=== PATIENT | male | born 1950 | race Caucasian/White ===

== ENCOUNTER 2024-04-09 13:33 | Emergency (ER) | payer MEDICARE, SELFPAY ==
--- NOTE | ~2024-04-09 | CT_ITS ---
CLINICAL HISTORY: LLQ Pain CT abdomen and pelvis with contrast Comparison: None Findings: No consolidation at the lung bases. Unremarkable gallbladder and bladder. No hydronephrosis or nephrolithiasis. The kidneys enhance normally. The other solid organs are unremarkable. Small hiatal hernia. No bowel dilation. There are few loops of small bowel which are prominent however measure within normal limits, measuring up to 2.2 cm. The appendix is not visualized. No secondary signs of acute appendicitis. Colonic diverticulosis. No inflamed diverticula or pericolonic stranding to indicate diverticulitis. No definitive bowel wall thickening; there is underdistention of portions of the small bowel and of the distal colon. No aneurysm. Mild to moderate calcified atherosclerotic disease. No lymphadenopathy. No ascites. Tiny fat containing umbilical hernia. Tiny right and small left fat containing inguinal hernias. No acute osseous abnormality. Impression: No acute findings. This document has been electronically signed by: Tiffany Zamudio MD on 04/09/2024 18:07:11
[2024-04-09 14:06] VITALS: BP 156/87; PULSE 83; RESP 16; TEMP 36.5; O2SAT 97; BMI 21.5
--- NOTE | 2024-04-09 14:07 | ED.ABDPAIN ---
HPI - Abdominal Pain General Chief Complaint: Abdominal Pain Stated Complaint: Lower L quadrant pain Time Seen by Provider: 04/09/24 14:38 Source: patient Mode of arrival: ambulatory Limitations: no limitations History of Present Illness ED Provider: Rob Fisher PA-C HPI narrative: 73 yo male with history of chronic constipation, chronic back pain on PRN [place] who presents to the ER c/o acute onset of LLQ pain that started this morning as he was walking through [employer]. Pain started gradually and got worse as he walked and moved around. He states the pain improves when he stays still and gets >10 with movement. He tried to have a BM today and also had increased pain in the LLQ. He report some nausea but no vomiting. Last BM yesterday and was normal for him. He takes miralax every day but forgot to yesterday. He reports inability to urinate since the pain developed. No testicular pain or penile pain. He denies a palpable mass in the area. MD elicited complaint: abdominal pain Pertinent past history: constipation Onset (ago): hour(s) Pain Consistency: constant Location: LLQ and suprapubic Severity: severe Quality: stabbing and sharp Radiation: none Migration to: no migration Exacerbating factors: movement Relieving factors: rest Associated symptoms: nausea, constipation and other (unable to urinate) Related Data Allergies Allergy/AdvReac Type Severity Reaction Status Date / Time Penicillins Allergy Hives Verified 04/09/24 14:10 Review of Systems Review of Systems Yes all other systems are reviewed and are negative [facility] Social History Social History Alcohol intake: current Alcohol intake frequency: 0-2 drinks per day Alcohol type: beer Smoked in Last 30 Days: No Use of substances other than those prescribed or required for medical reasons: No Advance Directives: No Advance Directives Information Provided: Yes Physical Exam ED Vital Signs: Vital Signs - 24 hr 04/09/24 14:06 04/09/24 15:16 04/09/24 16:16 Temperature 97.7 F Pulse Rate 83 88 Respiratory Rate 16 16 16 Blood Pressure 156/87 H 151/102 H Pulse Oximetry 97 97 Oxygen Delivery Method Room Air Room Air 04/09/24 17:23 04/09/24 17:25 Temperature 97.6 F Pulse Rate 91 Respiratory Rate 18 Blood Pressure 171/110 H 190/107 H Pulse Oximetry 100 Oxygen Delivery Method Room Air BMI result Body Mass Index 21.5 Appearance: Alert. Oriented X3. Appears to be in pain Head: normocephalic, atraumatic. Eyes: Pupils equal, round and reactive to light. ENT: Pharynx normal. No tonsillar swelling or exudate. Neck: Normal inspection. Neck supple. CVS: Normal heart rate and rhythm. Pulses normal. Respiratory: No respiratory distress. Breath sounds normal. Abdomen: Soft with tenderness in the left suprapubic region, no palpable mass, no skin changes, hypoactive but present +BS x4 Skin: Skin warm and dry. Normal skin color. Normal skin turgor. No rashes. Extremities: No lower extremity edema. No joint swelling. Neuro/psych: Oriented X 3. No motor deficit. No sensory deficit. CN II-XII intact. Normal speech and cognition. Course Course Course Narrative: This is an RME: Additional HPI, ROS, PE not included below will be deferred to primary provider. RME assessment and note performed by: Carmen Lezama PA-C This is a [id number], with a hx back problems, who presents to the ER with complaints of left lower abdominal pain since this morning. Pain progressively worsening since this morning Reports appendectomy as a child. No fevers or chills. No diarrhea. No vomiting. Further ER eval needed Plan: Labs, UA Reevaluation(s) Reevaluation #1: Patient received in sign-out pending CT scan of the abdomen pelvis. The CT scan shows no acute findings. Bladder scan shows less than 250 cc in the bladder. The patient is currently pain-free. I discussed the results with him and he was ready for discharge at this time Time: 18:45 Medical Decision Making Medical Decision Making MDM Narrative: 73 yo male presenting with acute onset of left lower abdominal pain that started earlier today. +nausea but no vomiting. He has tenderness to light palpation in the left suprapubic region without any palpable masses. no overlying skin changes. he is uncomfortable. BP elevated likely due to pain. no tachycardia or fevers. bladder scan ordered. IV established and morphine and zofran ordered with some improvement in his pain CT scan abd/pelvis ordered which is pending. Signed out to Avery Bacon PA-C who will follow up CT scan results Differential Diagnosis Differential Diagnoses: The differential diagnosis associated with the presentation includes diverticulitis, colitis, UTI, urinary retention, inguinal hernia, bowel perforation, bowel obstruction Admission/Observation Consideration of admission/observation: Escalation of care including admission/observation considered Lab Data MDM Lab Attestation statement: I reviewed the patient's lab results. no leukocytosis. 04/09/24 14:17 04/09/24 14:17 Labs: Lab Results 04/09/24 04/09/24 Range/Units 14:17 17:18 WBC 7.9 (4.8-10.8) X10*3/uL RBC 4.57 L (4.60-5.80) X10*6/uL Hgb 14.2 (14.0-18.0) g/dl Hct 42.5 (42.0-52.0) % MCV 93.0 (80.0-98.0) fL MCH 31.1 (27.0-33.0) pg MCHC 33.4 (31.0-36.0) g/dl RDW 12.7 (11.0-16.0) % Plt Count 259 (160-400) X10*3/uL MPV 8.9 L (9.4-12.4) fL Immature Gran % (Auto) 0.4 (0.0-0.4) % Neut % (Auto) 73.8 H (45-73) % Lymph % (Auto) 14.1 L (20-40) % [place] % (Auto) 8.6 (2-11) % Eos % (Auto) 2.6 (0-4) % Baso % (Auto) 0.5 (0-2) % Lymph # (Auto) 1.1 L (1.2-4.9) X10*3/uL [place] # (Auto) 0.7 (0.1-1.2) X10*3/uL Eos # (Auto) 0.2 (0.0-0.4) X10*3/uL Baso # (Auto) 0.0 (0.0-0.2) X10*3/uL Abs Immat Gran (auto) 0.03 (0.00-0.03) X10*3/uL Absolute Neuts (auto) 5.9 (2.0-8.3) x10*3/uL Absolute Nucleated RBC 0.000 (0.0-0.012) X10*3/uL Nucleated RBC % (auto) 0.0 (0.0-0.2) /100WBC Sodium 138 (135-145) mmol/L Potassium 4.3 (3.3-5.1) mmol/L Chloride 103 (96-108) mmol/L Carbon Dioxide 31 H (22-29) mmol/L Anion Gap 8 L (12-20) BUN 17 H (9-16) mg/dL Creatinine 0.93 (0.5-1.4) mg/dL Estim Creat Clear Calc 70.1 Estimated GFR > 60 Random Glucose 96 (60-115) mg/dL Calcium 8.8 (8.4-10.2) mg/dL Total Bilirubin 1.3 H (0.0-1.0) mg/dL Direct Bilirubin 0.4 (0.0-0.5) mg/dL AST 29 (5-37) U/L ALT 40 (0-40) U/L Alkaline Phosphatase 57 (39-117) U/L Total Protein 7.0 (6.5-8.0) g/dL Albumin 4.2 (3.5-5.0) g/dL Lipase 32 (8-78) U/L Urine Color Yellow Urine Appearance Clear Urine pH 7.0 (5.0-9.0) Ur Specific [place] 1.025 (1.005-1.025) Urine Protein Negative (Neg-Trace) mg/dL Urine Glucose (UA) Negative (Negative) mg/dL Urine Ketones Trace (Negative) mg/dL Urine Blood Negative (Negative) Urine Nitrite Negative (Negative) Ur Leukocyte Esterase Negative (Negative) Radiology Impression Discussion of test interpretation with radiology: I have reviewed the radiologist's reading. Radiologist Impression: Findings: No consolidation at the lung bases. Unremarkable gallbladder and bladder. No hydronephrosis or nephrolithiasis. The kidneys enhance normally. The other solid organs are unremarkable. Small hiatal hernia. No bowel dilation. There are few loops of small bowel which are prominent however measure within normal limits, measuring up to 2.2 cm. The appendix is not visualized. No secondary signs of acute appendicitis. Colonic diverticulosis. No inflamed diverticula or pericolonic stranding to indicate diverticulitis. No definitive bowel wall thickening; there is underdistention of portions of the small bowel and of the distal colon. No aneurysm. Mild to moderate calcified atherosclerotic disease. No lymphadenopathy. No ascites. Tiny fat containing umbilical hernia. Tiny right and small left fat containing inguinal hernias. No acute osseous abnormality. Impression: No acute findings. This document has been electronically signed by: Tiffany Zamudio MD on 04/09/2024 18:07:11 Prescription Management I considered prescription management with: Pain Medication and Antibiotic Chronic Conditions Patient?s care impacted by: Other (constipation) Medications Administered Discontinued Medications Generic Name Dose Route Start Last Admin Trade Name Freq PRN Reason Stop Dose Admin Iohexol 85 ml 04/09/24 17:06 04/09/24 17:06 Iohexol 350 Mg/Ml 75 Ml Infus..Btl IV 04/09/24 17:07 85 ml ONCE ONE Administration Morphine Sulfate 4 mg 04/09/24 14:39 04/09/24 14:56 Morphine Sulfate 4 Mg/Ml Cartridge IVPUSH 04/09/24 14:40 4 mg ONCE ONE Administration Protocol Ondansetron HCl 4 mg 04/09/24 14:39 04/09/24 14:56 Ondansetron Hcl 4 Mg/2 Ml Vial IVPUSH 04/09/24 14:40 4 mg ONCE ONE Administration Critical Care Time Critical Care Time Critical Care Time: No Discharge Plan Discharge Clinical Impression: Abdominal pain Qualifiers: Abdominal location: left lower quadrant Qualified Code(s): R10.32 - Left lower quadrant pain Patient Disposition: Home, Self-Care Instructions: Acute Abdominal Pain (ED) Additional Instructions: Your workup in the ER today was reassuring. Your CT scan did not show any concerning findings Follow-up with your primary doctor, return for new or worsening symptoms Print Language: Ukrainian
[2024-04-09 14:24] LABS: MANUAL DIFF FLAG NO
[2024-04-09 14:30] LABS: Basophils Percent Auto 0.5 % (0-2); Eosinophils Absolute Auto 0.2 X10*3/uL (0.0-0.4); Eosinophils Percent Auto 2.6 % (0-4); Hematocrit 42.5 % (42.0-52.0); Hemoglobin 14.2 g/dl (14.0-18.0); Imm Gran Abs Auto 0.03 X10*3/uL (0.00-0.03); Imm Gran Pct Auto 0.4 % (0.0-0.4); Lymphocytes Absolute Auto 1.1 X10*3/uL (1.2-4.9); Lymphocytes Percent Auto 14.1 % (20-40); Mean Corpuscular HGB Conc 33.4 g/dl (31.0-36.0); Mean Corpuscular Hemoglobin 31.1 pg (27.0-33.0); Mean Platelet Volume 8.9 fL (9.4-12.4); Monocytes Absolute Auto 0.7 X10*3/uL (0.1-1.2); Monocytes Percent Auto 8.6 % (2-11); Neutrophils Absolute Auto 5.9 x10*3/uL (2.0-8.3); Neutrophils Percent Auto 73.8 % (45-73); Platelet Count 259 X10*3/uL (160-400); Red Blood Count 4.57 X10*6/uL (4.60-5.80); Red Cell Distribution Width 12.7 % (11.0-16.0); White Blood Count 7.9 X10*3/uL (4.8-10.8)
[2024-04-09 14:40] LABS: Alanine Aminotransferase 40 U/L (0-40); Albumin Level 4.2 g/dL (3.5-5.0); Alkaline Phosphatase 57 U/L (39-117); Anion Gap 8 (12-20); Aspartate Amino Transferase 29 U/L (5-37); Bilirubin Direct 0.4 mg/dL (0.0-0.5); Bilirubin Total 1.3 mg/dL (0.0-1.0); Blood Urea Nitrogen 17 mg/dL (9-16); Calcium 8.8 mg/dL (8.4-10.2); Carbon Dioxide 31 mmol/L (22-29); Chloride 103 mmol/L (96-108); Creatinine Clr Calc Pharmacy 70.1; Estimated Glomerular Filt Rate > 60; Glucose Random 96 mg/dL (60-115); Lipase 32 U/L (8-78); Potassium 4.3 mmol/L (3.3-5.1); Sodium 138 mmol/L (135-145)
[2024-04-09] MEDS: ondansetron HCL 4 MG/2 ML VIAL IVPUSH (14:56)
[2024-04-09] MEDS: Morphine Sulfate 4 MG/ML CARTRIDGE IVPUSH (14:56)
[2024-04-09 15:16] VITALS: RESP 16
[2024-04-09 16:16] VITALS: BP 151/102; PULSE 88; RESP 16; O2SAT 97
[2024-04-09] MEDS: iohexoL 350 MG/ML 75 ML INFUS..BTL 85 ML IV (17:06)
[2024-04-09 17:23] VITALS: BP 171/110; PULSE 91; RESP 18; TEMP 36.4; O2SAT 100
[2024-04-09 17:25] VITALS: BP 190/107
[2024-04-09 17:30] LABS: Appearance Urine Clear; Color Urine Yellow; Glucose Urine UA Negative (Negative); Leukocyte Esterase Urine Negative (Negative); Nitrite Urine Negative (Negative); Specific Gravity - Urine 1.025 (1.005-1.025); Urine Blood Negative (Negative); Urine Ketones Trace mg/dL (Negative); Urine Protein Negative (Neg-Trace)
--- NOTE | 2024-04-09 17:30 | PC.NURSE ---
provider aware of BP's
[2024-04-09 18:57] VITALS: BP 169/110; PULSE 77; RESP 14; TEMP 36.6; O2SAT 98
== END 2024-04-09 18:58 | disposition home or self-care (01) ==
PROVIDERS: Physician Assistant Medical; Emergency Provider Student in an Organized Health Care Education/Training Program; PCP Pediatrics
DX: R10.32 Left lower quadrant pain (principal); K59.00 Constipation, unspecified; M54.50 Low back pain, unspecified; R11.0 Nausea; Z79.899 Other long term (current) drug therapy
CPT/HCPCS: 36415; 74177; 80048; 80076; 81003; 83690; 85025; 96374; 96375; 99284; 99285; J2270; J2405; Q9967

== ENCOUNTER → 2024-04-09 14:39 | Outpatient (BNV) | payer MEDICARE, SELFPAY | PROVIDERS: Emergency Provider Student in an Organized Health Care Education/Training Program; PCP Pediatrics; Visit Provider Radiology Diagnostic Radiology | DX: R10.32 Left lower quadrant pain (principal) | CPT/HCPCS: 74177 ==